=== PATIENT | female | born 1980 | race American Indian/Alaskan Native ===

== ENCOUNTER 2016-09-17 18:30 | Emergency (ER) | payer SELFPAY ==
[2016-09-17 19:00] VITALS: BP 139/84
[2016-09-17] MEDS ORDERED: BENADRYL IM ONE (23:36)
[2016-09-17] MEDS ORDERED: DECADRON IM ONE (23:36)
--- NOTE | 2016-09-17 23:36 | Emergency Department Report ---
ED Rash HPI - HPI Chief Complaint: Skin Rash Stated Complaint: SKIN IRRITATION Time Seen by Provider: 09/17/16 23:25 Duration: 1 week Location: Chest, Abdomen, Upper Extremities, Lower Extremities Suspected Cause: Other (patient said she spoke a few and she started breaking out in 8-10) Rash Symptoms: Yes Itching (abdomen, upper extremities, lower extremities and chest.), No Facial Swelling, No Tongue/Oral Swelling, No Breathing Difficulties , No Choking Sensation, No Wheezing/Dyspnea, No Peeling, No Blistering, No Fever , No Lightheaded, No Malaise, No Myalgias Severity: severe (itching) Other History: Patient reported that she used a new perfume last week and she started breaking out with little bumps and irritation. She reports itching all over but denies any fever or chills. Denies any cough, wheeze, stridor, shortness of breath or difficulty swallowing. ED Review of Systems ROS: Stated complaint: SKIN IRRITATION Other details as noted in HPI Comment: All other systems reviewed and negative Constitutional: denies: chills, fever ENT: denies: throat pain, congestion Respiratory: no symptoms reported Cardiovascular: denies: chest pain, palpitations, edema, syncope Gastrointestinal: denies: nausea, vomiting Musculoskeletal: denies: back pain, arthralgia, myalgia Skin: rash, pruritus Neurological: denies: headache, weakness, numbness, paresthesias, confusion, abnormal gait, vertigo ED Past Medical Hx - Past Medical History Previous Medical History?: No Additional medical history: vaginal dleivery x 3 - Surgical History Past Surgical History?: No - Family History Family history: no significant - Social History Smoking Status: Never Smoker Substance Use Type: Alcohol - Medications Home Medications: Home Medications Medication Instructions Recorded Confirmed Last Taken Type hydrOXYzine HCL [Atarax] 25 mg PO Q8H PRN #12 tablet 09/18/16 Unknown Rx methylPREDNISolone [Medrol] 4 mg PO QAM #1 tab.ds.pk 09/18/16 Unknown Rx Rash Exam - Exam General: Vital signs noted. No distress. Alert and acting appropriately. This is a 36-year-old female well-nourished well-developed in no acute distress. HEENT: No Periorbital Edema, No Conjuctival Injection, No Chemosis, No Perioral Edema, No Tongue Edema, No Uvular Edema, No Compromised Airway, No Drooling Lungs: Yes Good Air Exchange, No Wheezes, No Ronchi, No Stridor, No Cough, No Labored Respirations, No Retractions, No Use of Accessory Muscles, No Other Abnormal Lung Sounds Heart: Yes Regular (S1, S2. Regular rate and rhythm.), No Murmur Skin: Yes Maculopapular Rash ( scattered to upper and lower extremity, chest and upper back.), No Urticarial Rash, No Morbilliform rash, No Bulla(e), No Excoriations, No Weeping, No Tenderness, No Erythema, No Edema, No Encrustations , No Other Other: Positive: Abdomen Normal, Neurologic Normal, Musculoskeletal Normal ED Course Vital Signs 09/17/16 18:56 Temperature 98.1 F Pulse Rate 78 Respiratory 20 Rate Blood Pressure 139/84 O2 Sat by Pulse 100 Oximetry - Reevaluation(s) Reevaluation #1: 09/18/16 00:02 Patient given Decadron 10 mg IM and Benadryl 50 mg IM for contact dermatitis. ED Medical Decision Making - Medical Decision Making ED course: This is a patient that she has contact dermatitis and will be treated with steroid and Atarax for itching. She was given Benadryl 20 mg IM and Decadron 10 mg IM in emergency room. She has no respiratory symptoms. Diagnosis and treatment plan explained to patient and I discussed with her intention is to follow up with primary care physician and/or anime artist in 2 days. Condition discharge home with prescription for Medrol Dosepak and Atarax. Critical care attestation.: If time is entered above; I have spent that time in minutes in the direct care of this critically ill patient, excluding procedure time. ED Disposition Clinical Impression: Pruritic condition Contact dermatitis Qualifiers: Contact dermatitis type: irritant Contact dermatitis trigger: cosmetics Qualified Code(s): L24.3 - Irritant contact dermatitis due to cosmetics Disposition: DC-01 TO HOME OR SELFCARE Is pt being admited?: No Does the pt Need Aspirin: No Condition: Stable Instructions: Contact Dermatitis (ED), Itchy Skin (ED) Additional Instructions: Stop taking offending agent Take Medication is prescribed Your primary care physician or anime artist in 2-3 days. Prescriptions: hydrOXYzine HCL [Atarax] 25 mg PO Q8H PRN #12 tablet PRN Reason: Itching methylPREDNISolone [Medrol] 4 mg PO QAM #1 tab.ds.pk Referrals: PRIMARY CARE,MD [Primary Care Provider] - 3-5 Days Forms: Accompanied Note, Work/School Release Form(ED)
== END 2016-09-18 00:30 | disposition home or self-care (01) ==
LOC: ED 18:30
DX: L24.3 Irritant contact dermatitis due to cosmetics (principal); L29.9 Pruritus, unspecified
CPT/HCPCS: 96372; 99282; J1100; J1200